=== PATIENT | male | born 1935 | race Hispanic/Latino ===

== ENCOUNTER 2017-11-08 23:08 | Inpatient (IN) | payer MEDICARE ==
[2017-11-08 23:08] VITALS: PULSE 80
--- NOTE | 2017-11-08 23:26 | EDPD ---
HPI Stroke - General Time Seen by Provider: 11/08/17 23:19 Historian: Family (Daughter) - History of Present Illness Narrative History of Present Illness (Free Text): 11/08/17 23:23 Brennan Ballard is an 82 year old male, whose past medical history includes CVA, COPD, alcohol abuse, tobacco abuse, and seizures, who presents to the emergency department brought in by EMS for left-sided weakness and altered mental status. As per daughter, patient was last seen normal at 13:00 today and when she came home at 19:00 noted patient was experiencing weakness in his arm and left leg with associated twitching. EMS was subsequently notified and patient was given Ativan en route to the hospital. Patient had 1 can of beer today. Limited HPI and ROS secondary to patient's altered mental status. PMD: Dr. Farrell Date:: 11/08/17 Time: 23:23 Onset:: Hours Timing: Currently Symptomatic Context: Home Exacerbated by: Nothing Relieved by: Nothing - Location Location: Mental Status Locate Left: Upper extremity rTPA Inclusion/Exclusion - Refusal of Treatment Patient Refused Treatment: No - Inclusion Criteria for Altepase Patient is 18 years or Older: Yes The Clinical Diagnosis of Ischemic Stroke That is Causing a Potentially Disabling Neurological Deficit: No Time of Onset is Well Established to be Less Than 270 Minute Before Treatment Would Begin: No Risk/Benefit Discussed With Patient/Family Member Present: Yes - Exclusion Criteria for Altepase Uncontrolled Hypertension at Time of Treatment (Systolic BP above 185 or Diastolic BP above 110 mmHg): No Active Internal Bleeding: No Known Bleeding Diathesis Including but Not Limited to: Platelets Below 100,000/ mm,PTT Above 40 sec After Heparin Use, Current Use of Oral Anitcoagulant With INR Greater Than 1.7 or PT Greater Than 15 secs: No Evidence of an Intracranial Hemorrhage: No Evidence of Major Acute Infarct With Signs Greater Than 1/3 MCA Territory: No Suspicion of Subarachnoid Hemorrhage on Pretreatment Evaluation Even if CT Head Negative For Hemorrhage: No - Warning to TPA With Conditions Following Conditions Weighed Against Anticipated Benefit: Yes Condition: Stroke Serevity Too Mild, Age Greater Than 75 years, Increase Risk of Bleed Due to Comorbid Condition Additional Condition (For 3-4.5 Hour Window): Age Greater Than 80, Prior Stroke and Diabetes, Any anticoagulant use prior to admission (Even if INR less than 1.7) Past Medical History - Provider Review Nursing Documentation Reviewed: Yes - Cardiac Hx Congestive Heart Failure: Yes - Pulmonary Hx Chronic Obstructive Pulmonary Disease (COPD): Yes - Neurological Hx Neurological Disorder: No - HEENT Hx HEENT Disorder: No - Renal Hx Renal Disorder: No - Endocrine/Metabolic Hx Endocrine Disorders: No - Hematological/Oncological Hx Blood Disorders: No - Integumentary Hx Dermatological Disorder: No - Musculoskeletal/Rheumatological Hx Musculoskeletal Disorders: No Hx Falls: Yes - Gastrointestinal Hx Gastrointestinal Disorders: No - Genitourinary/Gynecological Hx Genitourinary Disorders: No - Psychiatric Hx Substance Use: No Family/Social History - Family/Social History Family History: Other - Review Nursing documentation reviewed.: Yes Allergies/Home Meds Allergies/Adverse Reactions: Allergies No Known Allergies Allergy (Verified 11/08/17 23:30) Review of Systems - Review of Systems Systems not reviewed;Unavailable: Altered Mental Status Neurological: Focal Weakness (+left arm weakness, +left leg weakness) ED Stroke Physical Exam Vital Signs Reviewed: Yes Temperature: Afebrile Blood Pressure: Normal Pulse: Regular Respiratory Rate: Normal Appearance: Positive for: Well-Appearing Pain Distress: None Mental Status: Positive for: Confused - Systems Exam Head: Present: Atraumatic, Normocephalic Pupils: Present: PERRL Extroacular Muscles: Present: EOMI Conjunctiva: Present: Normal Ears: Present: NORMAL TM Mouth: Present: Moist Mucous Membranes Pharnyx: Present: Normal Nose (External): Present: Atraumatic Nose (Internal): Present: Normal Inspection Neck: Present: Normal Range of Motion Respiratory/Chest: Present: Clear to Auscultation, Good Air Exchange. No: Respiratory Distress, Accessory Muscle Use Cardiovascular: Present: Regular Rate and Rhythm, Normal S1, S2. No: Murmurs Abdomen: Present: Normal Bowel Sounds. No: Tenderness, Distention, Peritoneal Signs Upper Extremity: Present: Normal Inspection. No: Cyanosis, Edema Lower Extremity: Present: Normal Inspection. No: Edema Neurologic: Present: CN II-XII Intact, Speech Normal, Other (left hemiparesis) Skin: Present: Warm, Dry, Normal Color. No: Rashes Psychiatric: Present: Alert Medical Decision Making ED Course and Treatment: 11/08/17 23:23 Impression: 82 year old male brought in for left upper and lower extremity weakness and twitching at 19:00. Pt last seen normal at 13:00 today. Differential Diagnosis included but are not limited to: CVA vs. TIA Plan: -- CT Head -- CTA Head/Neck -- EKG -- CXR -- Labs, tropnin, lipid panel, blood type and screen -- IV fluids -- Reassess and disposition Prior Visits: Notes and results from previous visits were reviewed. Progress Notes: 11/08/17 23:23 Pt seen on arrival to emergency department. Code stroke called. Pt taken CT scan. 11/08/17 23:[address] Bolton, neurologist sales promotion manager, who is aware and agrees with plan. Requests CTA Head/Neck and pt receive Keppra 1000mg. 11/09/17 00:03 Reviewed EKG, NSR at [address]. Non-specific ST/T wave changes. 11/09/17 00:05 Reviewed radiology, CXR shows no acute processes. CT Head shows: Brain: Small hypodense chronic lacunar infarcts are again visualized within the bilateral thalami. A tiny hypodense lacunar infarct is also visualized within the right basal ganglia which is stable and therefore chronic. There are periventricular foci of hypodensity, likely representing small vessel ischemic disease in a patient this age. The acuity of the white matter disease is indeterminate. The white-lincoln differentiation is preserved demonstrating no acute territorial type infarct. No acute intracranial hemorrhage is seen. Midline shift: There is no midline shift. Ventricles: There is moderate prominence of the ventricles and sulci, compatible with atrophy. Bones/joints: The calvarium demonstrates no evidence for a depressed fracture. Soft tissues: Multiple scalp calcifications are identified. Vasculature: There is atherosclerotic calcification of the intracranial internal carotid arteries and distal vertebral arteries. Sinuses: There is mucosal thickening of the bilateral frontal sinuses and scattered ethmoid air cells. Mucosal thickening with mucous retention cysts or polyps are identified within the bilateral maxillary sinuses. Mild polypoid mucosal thickening is identified within the left sphenoid sinus. Mastoid air cells: No mastoid effusion. IMPRESSION: 1. No acute intracranial hemorrhage or acute territorial type infarct. 2. Small hypodense chronic lacunar infarcts are again visualized within the bilateral thalami. A tiny hypodense lacunar infarct is also visualized within the right basal ganglia which is stable and therefore chronic. 3. There are periventricular foci of hypodensity, likely representing small vessel ischemic disease in a patient this age. 4. Moderate atrophy. 5. Paranasal sinus disease is noted above. 6. If further evaluation is clinically indicated, an MRI of the brain is recommended. 11/09/17 00:[address] Farrell, who is aware and agrees with plan. Accepts pt in to his service. Pt will be admitted to Telemetry for CVA and seizure. Requests Dr. Bolton on consult. 11/09/17 01:00 CTA Head shows: VASCULATURE: Right internal carotid artery: Atherosclerotic changes are identified of the internal carotid arteries bilaterally. There is approximately 70% stenosis of the cavernous right internal carotid artery. Highgrade stenosis was visualized on the prior study as well. No aneurysm. Right anterior cerebral artery: There is mild hypoplasia of the A1 segment of the right anterior cerebral artery. No occlusion or significant stenosis. No aneurysm. Right middle cerebral artery: No occlusion or significant stenosis. No aneurysm. Right posterior cerebral artery: No occlusion or significant stenosis. No aneurysm. Right vertebral artery: There is stable irregularity and stenoses of the distal right vertebral artery. A dominant left vertebral artery is identified. The right vertebral artery ends predominantly as the posterior inferior cerebral artery. Left internal carotid artery: There is approximately 63% stenosis of the cavernous left internal carotid artery. No aneurysm. Left anterior cerebral artery: There is mild stenosis of the proximal A1 segment of the left anterior cerebral artery. No aneurysm. Left middle cerebral artery: There is a mild asymmetric decrease in caliber of the left M1 segment of the middle cerebral artery relative to the right side. This is stable compared to the prior study. Otherwise, there is no significant stenosis or occlusion of the left middle cerebral artery. No aneurysm. Left posterior cerebral artery: No occlusion or significant stenosis. No aneurysm. Left vertebral artery: There is atherosclerosis of the distal left vertebral artery, with approximately 50% stenosis. Basilar artery: No significant stenosis. No occlusion. No aneurysm. HEAD: Brain: Refer to the CT head report from the same day for discussion of additional intracranial findings. Soft tissues: A mineralized density is identified within the right facial soft tissues lateral to the mandible measuring 1.0 x 0.6 cm. This is stable. IMPRESSION: 1. Atherosclerotic changes are identified of the internal carotid arteries bilaterally. There is approximately 70% stenosis of the cavernous right internal carotid artery. High- grade stenosis was visualized on the prior study as well. 2. There is approximately 63% stenosis of the cavernous left internal carotid artery. 3. There is mild stenosis of the proximal A1 segment of the left anterior cerebral artery. 4. There is atherosclerosis of the distal left vertebral artery, with approximately 50% stenosis. 5. There is stable irregularity and stenoses of the distal right vertebral artery. A dominant left vertebral artery is identified. 6. Additional CT findings described above. CTA Neck shows: VASCULATURE: Right common carotid artery: Mild stenoses are visualized of the right common carotid artery. Right internal carotid artery: Atherosclerotic changes are identified of the right internal carotid artery and carotid bifurcation. There is approximately 70% stenosis of the proximal right internal carotid artery. This is stable. No occlusion. Right external carotid artery: No occlusion. Right vertebral artery: There is a diffuse decrease in caliber of the right vertebral artery, without occlusion. Left common carotid artery: Mild atherosclerotic changes are visualized of the left common carotid artery, without significant stenosis or occlusion. Left internal carotid artery: There is atherosclerosis of the proximal left internal carotid artery, with approximately 60% stenosis. This is similar to the prior study. No occlusion. Left external carotid artery: No occlusion. Left vertebral artery: There is mild stenosis of the proximal left vertebral artery, with atherosclerosis. A dominant left vertebral artery is identified. Other vasculature: Bilateral atherosclerotic changes are identified of the bilateral subclavian arteries, with mild stenosis of the left subclavian artery. There is atherosclerosis of the aortic arch. NECK: Bones/joints: Spondylosis is visualized at multiple cervical levels. There is mild anterior wedging/compression deformity of the C5 vertebral body, stable compared to the prior study. Soft tissues: No mass. Lung apices: Emphysematous changes are identified within the lungs, which are both centrilobular and paraseptal. Pleural space: Biapical parenchymal scarring and calcified pleural plaques are visualized. Calcified pleural plaques can be associated with asbestos exposure. CAROTID STENOSIS REFERENCE USING NASCET CRITERIA: % ICA stenosis = (1 - narrowest ICA diameter/diameter of distal cervical ICA) x 100. Mild - <50% stenosis. Moderate - 50-69% stenosis. Severe - 70-94% stenosis. Near occlusion - 95-99% stenosis. Occluded - 100% stenosis. IMPRESSION: 1. Atherosclerotic changes are identified of the right internal carotid artery and carotid bifurcation. There is approximately 70% stenosis of the proximal right internal carotid artery. This is stable. 2. Mild stenoses are visualized of the right common carotid artery. 3. There is atherosclerosis of the proximal left internal carotid artery, with approximately 60% stenosis. This is similar to the prior study. 4. There is mild stenosis of the proximal left vertebral artery, with atherosclerosis. A dominant left vertebral artery is identified. 5. Bilateral atherosclerotic changes are identified of the bilateral subclavian arteries, with mild stenosis of the left subclavian artery. 6. Additional findings described above. 11/09/17 01:16 Discussed CTA Head/Neck results with Dr. Bolton, who is aware and agrees with plan. Pt is not a candidate for tPA. Pt currently on Xarelto and received Keppra 1000mg, as per Dr. Bolton. - Critical Care Critical Care Minutes: 30 minutes - Lab Interpretations I have reviewed the lab results: Yes - RAD Interpretation Warp Doffer: ED Physician, Radiologist - EKG Interpretation Interpreted by ED Physician: Yes Type: 12 lead EKG - Scribe Statement The provider has reviewed the documentation as recorded by the Tinyibyesika Arvizu Provider Scribe Attestation: All medical record entries made by the Scribe were at my direction and personally dictated by me. I have reviewed the chart and agree that the record accurately reflects my personal performance of the history, physical exam, medical decision making, and the department course for this patient. I have also personally directed, reviewed, and agree with the discharge instructions and disposition. NIHSS Scale ([place]) Time Performed: 23:23 - How Severe is the [place]oke Baseline Level of Consciousness: 0=Alert LOC to Questions: 0=Both comments correct LOC to commands: 0=Obeys both correctly Best Gaze: 0=Normal Visual: 0=No visual loss Facial: 0=Normal Motor Arm - Left: 1=Drift noted before 10 sec Motor Arm - Right: 0=No drift Motor Leg - Left: 2=Falls before 5 sec Motor Leg - Right: 0=No drift Limb Ataxia: 0=Absent Sensory: 0=Normal Best Language: 0=No aphasia Dysarthia: 0=Normal articulation Extinction & Inattention (Neglect): 0=Normal, no object Score: 3 Risk Level: Minor Stroke Risk Disposition/Present on Arrival - Present on Arrival Any Indicators Present on Arrival: No History of DVT/PE: No History of Uncontrolled Diabetes: No Urinary Catheter: No History of Decub. Ulcer: No History Surgical Site Infection Following: None - Disposition Have Diagnosis and Disposition been Completed?: Yes Diagnosis: CVA (cerebral vascular accident) Disposition: HOSPITALIZED Disposition Time: 01:30 Patient Plan: Admission Condition: STABLE
--- NOTE | 2017-11-09 00:02 | CT ---
EXAM: CT Head Without Intravenous Contrast EXAM DATE/TIME: 11/08/2017 11:29 PM CLINICAL HISTORY: The patient age is 82 years old and is male; Signs and symptoms; Other: Seizure; Additional info: Code stroke Facility exam id and description: Ct headstroke head w/o (code stroke) TECHNIQUE: Axial computed tomography images of the head/brain without intravenous contrast. All CT scans at this facility use one or more dose reduction techniques, viz.: automated exposure control; ma/kV adjustment per patient size (including targeted exams where dose is matched to indication; i.e. head); or iterative reconstruction technique. Coronal and sagittal reformatted images were created and reviewed. COMPARISON: CT - HEAD W/O (CODE STROKE) 2017-03-31 13:46, MR - BRAIN W WO CONTRAST 04/04/2017 4:03:34 PM FINDINGS: Brain: Small hypodense chronic lacunar infarcts are again visualized within the bilateral thalami. A tiny hypodense lacunar infarct is also visualized within the right basal ganglia which is stable and therefore chronic. There are periventricular foci of hypodensity, likely representing small vessel ischemic disease in a patient this age. The acuity of the white matter disease is indeterminate. The white-lincoln differentiation is preserved demonstrating no acute territorial type infarct. No acute intracranial hemorrhage is seen. Midline shift: There is no midline shift. Ventricles: There is moderate prominence of the ventricles and sulci, compatible with atrophy. Bones/joints: The calvarium demonstrates no evidence for a depressed fracture. Soft tissues: Multiple scalp calcifications are identified. Vasculature: There is atherosclerotic calcification of the intracranial internal carotid arteries and distal vertebral arteries. Sinuses: There is mucosal thickening of the bilateral frontal sinuses and scattered ethmoid air cells. Mucosal thickening with mucous retention cysts or polyps are identified within the bilateral maxillary sinuses. Mild polypoid mucosal thickening is identified within the left sphenoid sinus. Mastoid air cells: No mastoid effusion. IMPRESSION: 1. No acute intracranial hemorrhage or acute territorial type infarct. 2. Small hypodense chronic lacunar infarcts are again visualized within the bilateral thalami. A tiny hypodense lacunar infarct is also visualized within the right basal ganglia which is stable and therefore chronic. 3. There are periventricular foci of hypodensity, likely representing small vessel ischemic disease in a patient this age. 4. Moderate atrophy. 5. Paranasal sinus disease is noted above. 6. If further evaluation is clinically indicated, an MRI of the brain is recommended.
[2017-11-09 00:36] LABS: BASO # 0.05 K/mm3 (0.0-2.0); BASO % 0.6 % (0.0-3.0); EOS # 0.3 (0.0-0.7); EOS % 3.3 % (1.5-5.0); GRAN # 3.73 (1.4-6.5); GRAN % 44.1 % (50.0-68.0); HEMOGLOBIN 12.6 g/dL (14.0-18.0); LYMPH # 3.6 (1.2-3.4); LYMPH % 42.4 % (22.0-35.0); MEAN CELL VOLUME 99.5 fl (80.0-105.0); MEAN CORPUSCULAR HEMOGLOBIN 33.8 pg (25.0-35.0); MEAN PLATELET VOLUME 9.5 fl (7.0-11.0); MONO # 0.8 (0.1-0.6); MONO % 9.6 % (1.0-6.0); RBC 3.73 10^6/uL (3.5-6.1); RED CELL DISTRIBUTION WIDTH 14.6 % (11.5-14.5); WHITE BLOOD COUNT 8.5 10^3/ul (4.5-11.0)
[2017-11-09 00:45] LABS: PROTHROMBIN TIME 12.6 SECONDS (9.4-12.5)
[2017-11-09 00:46] LABS: INR 1.1 (0.93-1.08); PARTIAL THROMBOPLASTIN TIME 31.7 Seconds (25.1-36.5)
[2017-11-09] MEDS ORDERED: levETIRAcetam 1,000 MG in Sodium Chloride 0.9% 100 ML IV ONE (00:46)
[2017-11-09 00:47] LABS: ALB/GLOB RATIO 1.2 (1.1-1.8); ALBUMIN 4.4 g/dL (3.0-4.8); ALT/SGPT 28 U/L (7-56); AST/SGOT 36 U/L (17-59); BLOOD UREA NITROGEN 14 mg/dL (7-21); CALCIUM 9.1 mg/dL (8.4-10.5); GFR AFRICAN-AMERICAN > 60; GFR NON-AFRICAN AMERICAN > 60; HDL CHOLESTEROL 53 mg/dL (29-60)
--- NOTE | 2017-11-09 00:50 | CT ---
EXAM: CT Angiography Head With Intravenous Contrast CLINICAL HISTORY: The patient age is 82 years old and is male; Signs and symptoms; Convulsions / seizures; Additional info: Seizure/left hemiparesis [facility] and [facility] stroke TECHNIQUE: Axial computed tomographic angiography images of the head with intravenous contrast using CT angiography protocol. All CT scans at this facility use one or more dose reduction techniques, viz.: automated exposure control; ma/kV adjustment per patient size (including targeted exams where dose is matched to indication; i.e. head); or iterative reconstruction technique. MIP reconstructed images were created and reviewed. Coronal and sagittal reformatted images were created and reviewed. CONTRAST: 146 mL of OMNI 350 administered intravenously. COMPARISON: CTA HEAD NECK BUNDLE 2017-03-31 13:50 FINDINGS: VASCULATURE: Right internal carotid artery: Atherosclerotic changes are identified of the internal carotid arteries bilaterally. There is approximately 70% stenosis of the cavernous right internal carotid artery. High-grade stenosis was visualized on the prior study as well. No aneurysm. Right anterior cerebral artery: There is mild hypoplasia of the A1 segment of the right anterior cerebral artery. No occlusion or significant stenosis. No aneurysm. Right middle cerebral artery: No occlusion or significant stenosis. No aneurysm. Right posterior cerebral artery: No occlusion or significant stenosis. No aneurysm. Right vertebral artery: There is stable irregularity and stenoses of the distal right vertebral artery. A dominant left vertebral artery is identified. The right vertebral artery ends predominantly as the posterior inferior cerebral artery Left internal carotid artery: There is approximately 63% stenosis of the cavernous left internal carotid artery. No aneurysm. Left anterior cerebral artery: There is mild stenosis of the proximal A1 segment of the left anterior cerebral artery. No aneurysm. Left middle cerebral artery: There is a mild asymmetric decrease in caliber of the left M1 segment of the middle cerebral artery relative to the right side. This is stable compared to the prior study. Otherwise, there is no significant stenosis or occlusion of the left middle cerebral artery. No aneurysm. Left posterior cerebral artery: No occlusion or significant stenosis. No aneurysm. Left vertebral artery: There is atherosclerosis of the distal left vertebral artery, with approximately 50% stenosis. Basilar artery: No significant stenosis. No occlusion. No aneurysm. HEAD: Brain: Refer to the CT head report from the same day for discussion of additional intracranial findings. Soft tissues: A mineralized density is identified within the right facial soft tissues lateral to the mandible measuring 1.0 x 0.6 cm. This is stable. IMPRESSION: 1. Atherosclerotic changes are identified of the internal carotid arteries bilaterally. There is approximately 70% stenosis of the cavernous right internal carotid artery. High-grade stenosis was visualized on the prior study as well. 2. There is approximately 63% stenosis of the cavernous left internal carotid artery. 3. There is mild stenosis of the proximal A1 segment of the left anterior cerebral artery. 4. There is atherosclerosis of the distal left vertebral artery, with approximately 50% stenosis. 5. There is stable irregularity and stenoses of the distal right vertebral artery. A dominant left vertebral artery is identified. 6. Additional CT findings described above. EXAM: CT Angiography Neck With Intravenous Contrast EXAM DATE/TIME: 11/08/2017 11:29 PM CLINICAL HISTORY: The patient age is 82 years old and is male; Signs and symptoms; Convulsions / seizures; Additional info: Seizure/left hemiparesis [facility] TECHNIQUE: Axial computed tomographic angiography images of the neck with intravenous contrast using CT angiography protocol. All CT scans at this facility use one or more dose reduction techniques, viz.: automated exposure control; ma/kV adjustment per patient size (including targeted exams where dose is matched to indication; i.e. head); or iterative reconstruction technique. MIP reconstructed images were created and reviewed. Coronal and sagittal reformatted images were created and reviewed. CONTRAST: 146 mL of OMNI 350 administered intravenously. COMPARISON: CTA HEAD NECK BUNDLE 2017-03-31 13:50 FINDINGS: VASCULATURE: Right common carotid artery: Mild stenoses are visualized of the right common carotid artery. Right internal carotid artery: Atherosclerotic changes are identified of the right internal carotid artery and carotid bifurcation. There is approximately 70% stenosis of the proximal right internal carotid artery. This is stable. No occlusion. Right external carotid artery: No occlusion. Right vertebral artery: There is a diffuse decrease in caliber of the right vertebral artery, without occlusion. Left common carotid artery: Mild atherosclerotic changes are visualized of the left common carotid artery, without significant stenosis or occlusion. Left internal carotid artery: There is atherosclerosis of the proximal left internal carotid artery, with approximately 60% stenosis. This is similar to the prior study. No occlusion. Left external carotid artery: No occlusion. Left vertebral artery: There is mild stenosis of the proximal left vertebral artery, with atherosclerosis. A dominant left vertebral artery is identified. Other vasculature: Bilateral atherosclerotic changes are identified of the bilateral subclavian arteries, with mild stenosis of the left subclavian artery. There is atherosclerosis of the aortic arch. NECK: Bones/joints: Spondylosis is visualized at multiple cervical levels. There is mild anterior wedging/compression deformity of the C5 vertebral body, stable compared to the prior study. Soft tissues: No mass. Lung apices: Emphysematous changes are identified within the lungs, which are both centrilobular and paraseptal. Pleural space: Biapical parenchymal scarring and calcified pleural plaques are visualized. Calcified pleural plaques can be associated with asbestos exposure. CAROTID STENOSIS REFERENCE USING NASCET CRITERIA: % ICA stenosis = (1 - narrowest ICA diameter/diameter of distal cervical ICA) x 100. Mild - <50% stenosis. Moderate - 50-69% stenosis. Severe - 70-94% stenosis. Near occlusion - 95-99% stenosis. Occluded - 100% stenosis. IMPRESSION: 1. Atherosclerotic changes are identified of the right internal carotid artery and carotid bifurcation. There is approximately 70% stenosis of the proximal right internal carotid artery. This is stable. 2. Mild stenoses are visualized of the right common carotid artery. 3. There is atherosclerosis of the proximal left internal carotid artery, with approximately 60% stenosis. This is similar to the prior study. 4. There is mild stenosis of the proximal left vertebral artery, with atherosclerosis. A dominant left vertebral artery is identified. 5. Bilateral atherosclerotic changes are identified of the bilateral subclavian arteries, with mild stenosis of the left subclavian artery. 6. Additional findings described above.
[2017-11-09 00:58] LABS: LDL CHOLESTEROL 63 mg/dL (0-129)
[2017-11-09 01:01] LABS: TROPONIN I < 0.01 ng/mL
[2017-11-09] MEDS: Sodium Chloride 0.9% 1,000 ML IV SCH ×2 (01:14→18:03)
[2017-11-09 06:07] VITALS: BMI 18.2
--- NOTE | 2017-11-09 09:59 | RAD ---
HISTORY: Code Stroke COMPARISON: 04/06/2017 FINDINGS: LUNGS: No active pulmonary disease. PLEURA: No significant pleural effusion identified, no pneumothorax apparent. CARDIOVASCULAR: The heart is normal in size. Mild vascular congestion OSSEOUS STRUCTURES: No significant abnormalities. VISUALIZED UPPER ABDOMEN: Normal. OTHER FINDINGS: None. IMPRESSION: No active disease.
--- NOTE | 2017-11-09 11:26 | CARD ---
APPROVED REPORT EKG Measurement Heart [id number] <Conclusion> Normal sinus rhythm with 1st degree AVB Right bundle branch block STTW changes c/w ischemia, new Low voltage limb leads.
[2017-11-09] MEDS: Potassium Chloride 20 mEq ER Tab PO SCH ×2 (12:52→17:56)
--- NOTE | 2017-11-09 17:19 | HP ---
HISTORY OF PRESENT ILLNESS: The patient is 82 years old, patient of Dr. Farrell, covering for him. History taken from the patient's daughter who was by the bedside. The patient is not very cooperative and poor historian. According to daughter, she went out to have her hair done. When she came back, her father was sitting on the chair. Usually, he ambulates with a walker. He asked her to drink some beer from the fridge that she usually does not do and she noticed that his left hand is curled in and is weak and he dropped a pack of cigarette from his hand. She asked him to walk to the bedroom. He was able to only stand up, but could not walk, so she called ambulance and he was brought to emergency room around 11:00 at night. Apparently, accordingly to daughter, he had stroke last year. She does state that he regularly drinks 4-5 beers everyday and he still smokes heavy. There is no associated symptom of nausea, vomiting, headache, hemoptysis, hematemesis. No history of fever. No chills. No history of fall. PAST MEDICAL HISTORY: Significant for, 1. Hypertension. 2. Hyperlipidemia. 3. Chronic AFib, on anticoagulant. 4. History of lung nodule. 5. COPD. ALLERGIES: HE IS NOT ALLERGIC TO ANY MEDICATIONS. MEDICATIONS AT HOME: He is on magnesium 400 twice a day, Xopenex 0.6 three times a day, Lasix 40 mg daily, folic acid 1 mg daily, doxycycline 100 mg every 12, Keppra 500 twice a day, Xarelto 20 mg daily, potassium 20 mEq daily, nicotine patch and multivitamins. SOCIAL HISTORY: He lives with his daughter, heavy smoker and he drinks 4-5 beers everyday. PHYSICAL EXAMINATION: GENERAL: He is lethargic, sleepy because he was given Ativan earlier. VITAL SIGNS: He is afebrile, pulse 75, respiration 18, blood pressure 134/77. LUNGS: Bilateral soft crackle and diffusely decreased breath sounds. HEART: S1 and S2 audible. ABDOMEN: Soft, nontender. No rebound. No guarding. NEUROLOGICAL: The patient is sleepy, but arousable. Unable to assess his motor system because he is non-cooperative and falling asleep. LABORATORY EXAM: WBC is 8.5, hemoglobin 12.6, hematocrit 37.1, platelet 228. PT 12.6, INR 1.1. Chemistry: Sodium 141, potassium 4.2, chloride 103, CO2 27, BUN 14, creatinine 0.6, blood sugar 90, alcohol level is less than 10. Had CT scan of the brain done that shows no acute intracranial hemorrhage or territorial infarct. He has small hypodense chronic lacunar infarct within the bilateral thalami. Tiny hypodensity lacunar infarct in the right basal ganglia. There is also periventricular foci of hypodensity representing small vessel disease with moderate atrophy. His chest x-ray is negative. EKG shows normal sinus rhythm, right bundle-branch block. CT angio of the neck shows atherosclerotic changes of internal carotid artery bilaterally and approximately 70% stenosis of cavernous and right internal carotid artery, high-grade stenosis was also visualized on prior study. A 63% stenosis of cavernous, left internal carotid artery. Mild stenosis of paroxysmal A1 segment of the left anterior cerebral artery. ASSESSMENT: 1. Acute cerebrovascular accident with left hemiparesis. 2. Multiple cerebrovascular accidents in the past. 3. Hypertension. 4. Hyperlipidemia. 5. Paroxysmal atrial fibrillation. 6. Pulmonary nodule. 7. Active smoker. 8. Alcohol abuse. PLAN: We will start the patient on IV fluids. Start him on nicotine patch 21 mg daily. We will continue him on Keppra. Swallowing eval will be requested. We will order for carotid Doppler and MRI of the brain. Awaiting neuro eval. Rocio Zimmer MD
--- NOTE | 2017-11-09 22:49 | CP.PCM.CON ---
History of Present Illness - History of Present Illness History of Present Illness: 82 yr old male who was admitted with left sided weakness yesterday, with pmh of stroke, COPD, chronic alcohol abuse, and epilepsy who presented with twitching and weakness of his left side. He was found by his daughter and was found about 6 hours after she left him normal. Ems gave patient ativan en route , and patients symptoms resolved by my exam. ROS: unable to elicit as patient refuses. on exam: Neuro exam refused at this time. He appears to have no facial asymmetry, is speaking fluently, and follows commands. +2 dtr ul and ll bl. Toes downgoing bl. Past Patient History - Infectious Disease Hx of Infectious Diseases: None - Past Social History Smoking Status: Current Some Days Smoker - CARDIAC Hx Congestive Heart Failure: Yes - PULMONARY Hx Chronic Obstructive Pulmonary Disease (COPD): Yes - NEUROLOGICAL Hx Neurological Disorder: No - HEENT Hx HEENT Problems: No - RENAL Hx Chronic Kidney Disease: No - ENDOCRINE/METABOLIC Hx Endocrine Disorders: No - HEMATOLOGICAL/ONCOLOGICAL Hx Blood Disorders: No - INTEGUMENTARY Hx Dermatological Problems: No - MUSCULOSKELETAL/RHEUMATOLOGICAL Hx Falls: Yes - GASTROINTESTINAL Hx Gastrointestinal Disorders: No - GENITOURINARY/GYNECOLOGICAL Hx Genitourinary Disorders: No - PSYCHIATRIC Hx Psychophysiologic Disorder: Yes (SMOKES 3 PPD,DRINKS 6-8 BEERS/D FOR 20 YRS.) - SURGICAL HISTORY Hx Surgeries: No - ANESTHESIA Hx Anesthesia: No Meds Allergies/Adverse Reactions: Allergies Allergy/AdvReac Type Severity Reaction Status Date / Time No Known Allergies Allergy Verified 11/08/17 23:30 - Medications Medications: Current Medications Aspirin (Ecotrin) 81 mg PO DAILY [facility] Atorvastatin Calcium (Lipitor) 20 mg PO DAILY [facility] Folic Acid (Folic Acid) 1 mg PO DAILY [facility] Sodium Chloride (Sodium Chloride 0.9%) 1,000 mls @ 100 mls/hr IV .Q10H [facility] Last Admin: 11/09/17 01:14 Dose: 100 mls/hr Levetiracetam (Keppra) 500 mg PO BID [facility] Nicotine (Nicoderm Cq) 1 patch TD DAILY [facility] Potassium Chloride (K-Dur 20 Meq Er Tab) 20 meq PO BID [facility] Rivaroxaban (Xarelto) 20 mg PO DAILY [facility] PRN Reason: Protocol Results - Vital Signs Recent Vital Signs: Last Vital Signs Temp 97.8 F 11/09/17 06:00 Pulse 65 11/09/17 10:00 Resp 18 11/09/17 06:00 BP 134/77 11/09/17 06:00 Pulse Ox 98 11/09/17 03:30 - Labs Result Diagrams: 11/08/17 23:53 11/08/17 23:53 Labs: Laboratory Results - last 24 hr 11/09/17 01:37 Blood Type Confirm O NEGATIVE Assessment & Plan - Assessment and Plan (Free Text) Assessment: 82 yr old male with possible stroke, but he is refusing exam and MRI Brain. There fore we are unable to clearly determine if he has had a new stroke. IT is also not clear if he has had a seizure. Plan: 1. MRI Brain 2. aspirin 325 mg po daily 3. neuroimaging so far normal. 4. IF patient continues to refuse treatment would discharge home and manage outpatient. Thank you Dr. Bolton
[2017-11-10] MEDS: Potassium Chloride 20 mEq ER Tab PO SCH (10:00)
[2017-11-10] MEDS: Potassium Chloride 20 mEq/15 ml LIQ UD PO SCH ×2 (12:24→17:56)
[2017-11-10] MEDS: levETIRAcetam 500 mg/5ml UD cups PO SCH ×2 (12:25→21:58)
[2017-11-10] MEDS: Sodium Chloride 0.9% 1,000 ML IV SCH (14:30)
--- NOTE | 2017-11-10 20:46 | PN ---
DATE: 11/10/2017 SUBJECTIVE: Patient is 82 years old, seen and examined, sleepy, but arousable, not very cooperative, agitated at times, had swallowing evaluation done in past, being fed today. According to the nurse, does not have good appetite. Falls asleep easily, but did not have any nausea or vomiting. PHYSICAL EXAMINATION: VITAL SIGNS: He is afebrile, pulse 90, respirations 22, and blood pressure 158/96. LUNGS: Bilateral fair airflow. No rhonchi or crackles. HEART: S1, S2 audible. ABDOMEN: Soft, nontender. No rebound. No guarding. NEUROLOGIC: Patient is sleepy, but arousable. EXTREMITIES: Bilateral legs, no edema. LABORATORY DATA: There is no new lab available today. ASSESSMENT: 1. Status post altered mental status. 2. Left hemiparesis. 3. Hypertension. 4. Hyperlipidemia. 5. Chronic atrial fibrillation. 6. History of lung nodule. 7. Chronic obstructive pulmonary disease. 8. Active smoker. 9. Alcohol abuse. PLAN: The patient was recommended to have MRI done, but he refused. He also refused carotid Doppler. We will start him on Ativan, start to feed him. We will reevaluate in a.m. if he agree to have MRI done . Rocio Zimmer MD
[2017-11-11] MEDS: Sodium Chloride 0.9% 1,000 ML IV SCH ×2 (01:30→10:16)
--- NOTE | 2017-11-11 07:09 | CP.PCM.PN ---
Subjective - Date & Time of Evaluation Date of Evaluation: 11/11/17 Time of Evaluation: 07:08 - Subjective Subjective: Mr. Ballard was seen and examined at the bedside. He is awake, confused, unable to follow simple commands, moves all extremities spontaneously. He is able to response to his name. He has the SCD on bilateral lower extremities.There was no untoward events overnight. Objective - Vital Signs/Intake and Output Vital Signs (last 24 hours): Temp Pulse Resp BP Pulse Ox 97.2 F L 74 19 159/86 H 96 11/11/17 06:00 11/11/17 06:00 11/11/17 06:00 11/11/17 06:00 11/11/17 06:00 Intake and Output: 11/11/17 11/11/17 06:59 18:59 Intake Total 20 Balance 20 - Medications Medications: Current Medications Aspirin (Ecotrin) 81 mg PO DAILY [facility] Last Admin: 11/10/17 12:24 Dose: 81 mg Atorvastatin Calcium (Lipitor) 20 mg PO DIN [facility] Last Admin: 11/10/17 17:56 Dose: 20 mg Folic Acid (Folic Acid) 1 mg PO DAILY [facility] Last Admin: 11/10/17 12:24 Dose: 1 mg Sodium Chloride (Sodium Chloride 0.9%) 1,000 mls @ 100 mls/hr IV .Q10H [facility] Last Admin: 11/11/17 01:30 Dose: 100 mls/hr Levetiracetam (Keppra) 500 mg PO Q12 [facility] Last Admin: 11/10/17 21:58 Dose: 500 mg Lorazepam (Ativan) 2 mg IVP ONCE ONE PRN Reason: Protocol Stop: 11/11/17 08:01 Lorazepam (Ativan) 0.5 mg IVP Q6H PRN; Protocol PRN Reason: Anxiety Last Admin: 11/10/17 21:59 Dose: 0.5 mg Nicotine (Nicoderm Cq) 1 patch TD DAILY [facility] Last Admin: 11/10/17 12:25 Dose: 1 patch Potassium Chloride (Potassium Chloride Oral Soln) 20 meq PO BRKDIN [facility] Last Admin: 11/10/17 17:56 Dose: 20 meq Rivaroxaban (Xarelto) 20 mg PO DAILY [facility] PRN Reason: Protocol Last Admin: 11/10/17 12:24 Dose: 20 mg - Labs Labs: PT 12.6 SECONDS (9.4-12.5) H 11/08/17 23:53 INR 1.10 (0.93-1.08) H 11/08/17 23:53 APTT 31.7 Seconds (25.1-36.5) 11/08/17 23:53 - Constitutional Appears: No Acute Distress - Head Exam Head Exam: NORMAL INSPECTION - Neurological Exam Neuro motor strength exam: Left Upper Extremity: 3, Right Upper Extremity: 3, Left Lower Extremity: 3, Right Lower Extremity: 3 Additional comments: confused, unable to follow any commands, moves all extremities spontaneously. Assessment and Plan (1) Altered mental status Assessment & Plan: Case discussed with Dr. Bolton, continue all current medical regimen. Pending MRI of the brain without contrast. Recommend blood pressure control, keep head of bed elevated. Status: Acute
[2017-11-11] MEDS: Potassium Chloride 20 mEq/15 ml LIQ UD PO SCH ×2 (07:51→17:55)
[2017-11-11 08:01] LABS: BASO # 0.04 K/mm3 (0.0-2.0); BASO % 0.3 % (0.0-3.0); EOS # 0.3 (0.0-0.7); EOS % 2.7 % (1.5-5.0); GRAN # 6.96 (1.4-6.5); GRAN % 59.1 % (50.0-68.0); HEMOGLOBIN 13.5 g/dL (14.0-18.0); LYMPH # 3.1 (1.2-3.4); LYMPH % 26.1 % (22.0-35.0); MEAN CELL VOLUME 96.8 fl (80.0-105.0); MEAN CORPUSCULAR HEMOGLOBIN 33.5 pg (25.0-35.0); MEAN CORPUSCULAR HGB CONC 34.6 g/dl (31.0-37.0); MEAN PLATELET VOLUME 9.6 fl (7.0-11.0); MONO # 1.4 (0.1-0.6); MONO % 11.8 % (1.0-6.0); RBC 4.03 10^6/uL (3.5-6.1); RED CELL DISTRIBUTION WIDTH 13.4 % (11.5-14.5); WHITE BLOOD COUNT 11.8 10^3/ul (4.5-11.0)
[2017-11-11 08:22] LABS: ALB/GLOB RATIO 1.2 (1.1-1.8); ALBUMIN 4.1 g/dL (3.0-4.8); ALT/SGPT 26 U/L (7-56); AST/SGOT 32 U/L (17-59); BLOOD UREA NITROGEN 4 mg/dL (7-21); GFR AFRICAN-AMERICAN > 60; GFR NON-AFRICAN AMERICAN > 60
[2017-11-11] MEDS: levETIRAcetam 500 mg/5ml UD cups PO SCH ×2 (09:02→22:02)
[2017-11-11] MEDS ORDERED: Gadodiamide 287 MG/ML VIAL (15ML) IV ONE (11:50)
--- NOTE | 2017-11-11 13:02 | MRI ---
PROCEDURE: MRI BRAIN WITH AND WITHOUT CONTRAST HISTORY: r/o new stroke; H/O CVA COMPARISON: 04/04/2017 TECHNIQUE: Multiplanar, multisequence MR images of the brain were obtained with and without intravenous contrast enhancement. FINDINGS: HEMORRHAGE: None DWI: No evidence of an acute or early subacute infarction. BRAIN PARENCHYMA: No mass,mass effect or edema. Chronic microvascular changes are seen in the periventricular white matter. ENHANCEMENT: No abnormal intracranial enhancement. VENTRICLES: Unremarkable. No hydrocephalus. CRANIUM: Unremarkable. ORBITS: Grossly unremarkable. PARANASAL SINUSES/MASTOIDS: Clear VASCULAR SYSTEM: Skull base flow voids intact. OTHER FINDINGS: None . IMPRESSION: Chronic microvascular changes. No acute intracranial findings.
--- NOTE | 2017-11-11 17:22 | PN ---
DATE: 11/11/2017 SUBJECTIVE: Patient is 82 years old. He was just given Ativan because he is going for MRI. According to nurse, he was was able to eat, relatively less agitated. OBJECTIVE: VITAL SIGNS: He is afebrile, pulse 74, respirations 19, blood pressure 159/86. LUNGS: Bilateral fair airflow. No rhonchi or crackle. HEART: S1 and S2 audible. ABDOMEN: Soft, nontender. No rebound, no guarding. ENT: He has nonicteric sclerae, pink conjunctivae. He has hyphema of his nose. NEUROLOGICAL: He is sedated and was given Ativan in prep for MRI. EXTREMITIES: Bilateral legs, no edema. LABORATORY EXAM: WBC is 11.8, hemoglobin 13.5, hematocrit 39, and platelets of 227. Chemistry: Sodium 142, potassium 3.5, chloride 103, CO2 of 26. BUN 5, creatinine 0.4. Blood sugar of 111. Patient had MRI of the brain done that shows chronic microvascular changes, no acute intracranial findings. ASSESSMENT: 1. Left-sided weakness noticed by the family member; however, his clinical exam is unremarkable and so his MRI is also unremarkable. 2. Alcohol dependence and he was having symptoms of alcohol withdrawal. 3. Chronic obstructive pulmonary disease. 4. Hypertension. 5. Active smoker. 6. History of lung nodule. 7. Chronic atrial fibrillation. PLAN: Patient is hemodynamically stable. We will discontinue telemetry. Continue him on Keppra. Continue on Lipitor, nicotine. His potassium was supplemented. I will discontinue his fluid since he is eating very well. Start him on physical therapy. He might be a candidate for TCU. Rocio Zimmer MD
[2017-11-12 06:57] LABS: ALB/GLOB RATIO 1.1 (1.1-1.8); ALT/SGPT 26 U/L (7-56); AST/SGOT 37 U/L (17-59); BASO # 0.06 K/mm3 (0.0-2.0); BASO % 0.6 % (0.0-3.0); BLOOD UREA NITROGEN 5 mg/dL (7-21); EOS # 0.6 (0.0-0.7); GFR AFRICAN-AMERICAN > 60; GFR NON-AFRICAN AMERICAN > 60; GRAN # 4.69 (1.4-6.5); GRAN % 46.7 % (50.0-68.0); HEMOGLOBIN 13.6 g/dL (14.0-18.0); LYMPH # 3.5 (1.2-3.4); LYMPH % 34.7 % (22.0-35.0); MEAN CELL VOLUME 97.8 fl (80.0-105.0); MEAN CORPUSCULAR HEMOGLOBIN 33.3 pg (25.0-35.0); MEAN PLATELET VOLUME 9.5 fl (7.0-11.0); MONO # 1.2 (0.1-0.6); RBC 4.09 10^6/uL (3.5-6.1); RED CELL DISTRIBUTION WIDTH 13.9 % (11.5-14.5)
[2017-11-12] MEDS: levETIRAcetam 500 mg/5ml UD cups PO SCH (09:11)
[2017-11-12] MEDS: Potassium Chloride 20 mEq/15 ml LIQ UD PO SCH ×2 (09:12→17:57)
--- NOTE | 2017-11-12 11:39 | PN ---
DATE: 11/12/2017 SUBJECTIVE: An 82-year-old white male with a history of CVA and seizure in the past, alcohol abuse, tobacco abuse, COPD, chronic alcoholism admitted with change in mental status. Blood pressure 170/99 and temperature 98.1, pulse is 102 plus he has paroxysmal atrial fibrillation. The patient has been taking Xarelto as an outpatient and doing well when this occurrence occurred. The patient is more stable today. He has increased strength in his upper and lower extremities without any localizing defects. He is awake and alert. DATA: He did have a brain MRI, which did not show any new acute lesions. He also had a neck CTA, which was normal. PLAN: The patient will start physical therapy and occupational therapy and instructed to continue to avoid tobacco and alcohol and be followed as an outpatient. Clifford Farrell MD
--- NOTE | 2017-11-12 12:45 | CP.PCM.PN ---
Subjective - Date & Time of Evaluation Date of Evaluation: 11/12/17 Time of Evaluation: 12:45 - Subjective Subjective: Mr. Ballard was seen and examined at the bedside. He is awake, able to state place, his birthday, but not time which is an improvement from previous examination. He is able to follow simple commands, moves all extremities spontaneously. He is able to tolerate small amount of thin liquids. .There was no untoward events overnight. Objective - Vital Signs/Intake and Output Vital Signs (last 24 hours): Temp Pulse Resp BP Pulse Ox 97.4 F L 65 20 120/77 94 L 11/12/17 10:00 11/12/17 10:00 11/12/17 10:00 11/12/17 10:00 11/12/17 10:00 Intake and Output: 11/12/17 11/12/17 06:59 18:59 Intake Total 0 Output Total 0 Balance 0 - Medications Medications: Current Medications Aspirin (Ecotrin) 81 mg PO DAILY [facility] Last Admin: 11/12/17 09:11 Dose: 81 mg Atorvastatin Calcium (Lipitor) 20 mg PO DIN [facility] Last Admin: 11/11/17 17:55 Dose: 20 mg Folic Acid (Folic Acid) 1 mg PO DAILY [facility] Last Admin: 11/12/17 09:11 Dose: 1 mg Levetiracetam (Keppra) 500 mg PO Q12 [facility] Last Admin: 11/12/17 09:11 Dose: 500 mg Lorazepam (Ativan) 0.5 mg IVP Q6H PRN; Protocol PRN Reason: Anxiety Last Admin: 11/10/17 21:59 Dose: 0.5 mg Nicotine (Nicoderm Cq) 1 patch TD DAILY [facility] Last Admin: 11/12/17 09:11 Dose: 1 patch Potassium Chloride (Potassium Chloride Oral Soln) 20 meq PO BRKDIN [facility] Last Admin: 11/12/17 09:12 Dose: 20 meq Rivaroxaban (Xarelto) 20 mg PO DAILY [facility] PRN Reason: Protocol Last Admin: 11/12/17 09:11 Dose: 20 mg - Labs Labs: 11/12/17 05:30 11/12/17 05:30 PT 12.6 SECONDS (9.4-12.5) H 11/08/17 23:53 INR 1.10 (0.93-1.08) H 11/08/17 23:53 APTT 31.7 Seconds (25.1-36.5) 11/08/17 23:53 - Constitutional Appears: No Acute Distress - Head Exam Head Exam: NORMAL INSPECTION - Eye Exam Pupil Exam: PERRL - Neurological Exam Neurological Exam: Alert, Awake Neuro motor strength exam: Left Upper Extremity: 4, Right Upper Extremity: 4, Left Lower Extremity: 3, Right Lower Extremity: 3 Additional comments: awake, alert but unable to verbalize time, follows commands. Assessment and Plan (1) Altered mental status Assessment & Plan: Case discussed with Dr. Bolton, continue all current medical, physical, occupational, and speech therapies. Recommend EEG and a neurointerventional consult to eval;uate the right ICA. Pending carotid doppler.Recommend hydration , normothermia, Status: Acute
--- NOTE | 2017-11-12 15:04 | RAD ---
PROCEDURE: Left Hand Radiographs. HISTORY: bruising of the left hand COMPARISON: None. FINDINGS: BONES: Normal. No fracture. JOINTS: Normal. No osteoarthritic changes. SOFT TISSUES: Normal. OTHER FINDINGS: None. IMPRESSION: Normal left hand radiographs.
--- NOTE | 2017-11-12 15:05 | RAD ---
PROCEDURE: Radiographs of the Left Forearm HISTORY: r/o fracture COMPARISON: None available. TECHNIQUE: Frontal and lateral views obtained. FINDINGS: BONES: No fracture or destructive lesion. JOINT SPACES: Unremarkable. OTHER FINDINGS: None. IMPRESSION: Unremarkable radiographs of the left forearm.
--- NOTE | 2017-11-12 15:06 | RAD ---
PROCEDURE: Radiographs of the Left Shoulder HISTORY: bruising r/o fracture COMPARISON: No prior. FINDINGS: BONES: Normal. No fracture. JOINTS: Normal. Glenohumeral and acromioclavicular joints preserved. No osteoarthritis. SOFT TISSUES: Normal. OTHER FINDINGS: None. IMPRESSION: Normal radiographs of the left shoulder.
[2017-11-12] MEDS ORDERED: Levalbuterol 0.63 MG/3 ML Inhal Soln UD IH PRN (16:56)
--- NOTE | 2017-11-12 21:28 | US ---
PROCEDURE: Bilateral carotid artery duplex ultrasound HISTORY: Carotid stenosis PHYSICIAN(S): Armani Rosario MD. TECHNIQUE: Duplex sonography and color-flow Doppler were used to evaluate the carotid bifurcations and limited segments of the vertebral arteries bilaterally. FINDINGS: There is moderate to extensive heterogeneous echogenic plaque noted at the carotid bifurcations bilaterally. The peak systolic velocity in the proximal right internal carotid artery is 141 cm/sec. This corresponds to a 40-59 percent proximal right ICA stenosis. Normal systolic velocities are noted in the proximal right external carotid artery. There is antegrade flow in the right vertebral artery. The peak systolic velocity in the proximal left internal carotid artery is 85 cm/sec. This corresponds to a 20 to 39% proximal left ICA stenosis. Normal systolic velocities are noted in the proximal left external carotid artery. There is antegrade flow in the left vertebral artery. IMPRESSION: 1. 40-59 percent proximal right ICA stenosis. 2. 20-39 percent proximal left ICA stenosis. 3. Antegrade flow in both vertebral arteries.
[2017-11-13] MEDS: Potassium Chloride 20 mEq/15 ml LIQ UD PO SCH ×2 (09:46→17:38)
--- NOTE | 2017-11-13 12:41 | CP.PCM.CON ---
History of Present Illness - History of Present Illness History of Present Illness: Mr. Ballard is an 82 year old male, with a past medical history of stroke, COPD, alcohol abuse, tobacco abuse, and seizures, who was brought in to the emergency department by EMS for left-sided weakness and altered mental status. As per daughter, patient was last seen normal at 1pm on the day of admission and when she came home at 7 pm noted patient was weak in his arm and left leg with associated twitching. EMS was subsequently notified and patient was given Ativan en route to the hospital. . Pt is irritable and does not want to participate in review of systems On exam: MSE: Confused, follows simple commands inconsistently but is irritable CN: EOM full, VFF, No facial droop, tongue midline Motor: moves both sides strongly Sensory: Reports intact b/l Coord: No dysmetria Gait: Deferred Past Patient History - Infectious Disease Hx of Infectious Diseases: None - Past Social History Smoking Status: Current Some Days Smoker - CARDIAC Hx Cardiac Disorders: Yes Hx Hypertension: Yes - PULMONARY Hx Chronic Obstructive Pulmonary Disease (COPD): Yes - NEUROLOGICAL HX Cerebrovascular Accident: Yes - HEENT Hx HEENT Problems: No - RENAL Hx Chronic Kidney Disease: No - ENDOCRINE/METABOLIC Hx Endocrine Disorders: No - HEMATOLOGICAL/ONCOLOGICAL Hx Blood Disorders: No - INTEGUMENTARY Hx Dermatological Problems: No - MUSCULOSKELETAL/RHEUMATOLOGICAL Hx Falls: Yes - GASTROINTESTINAL Hx Gastrointestinal Disorders: No - GENITOURINARY/GYNECOLOGICAL Hx Genitourinary Disorders: No - PSYCHIATRIC Hx Psychophysiologic Disorder: Yes (SMOKES 3 PPD,DRINKS 6-8 BEERS/D FOR 20 YRS.) - SURGICAL HISTORY Hx Surgeries: No - ANESTHESIA Hx Anesthesia: No Meds Allergies/Adverse Reactions: Allergies Allergy/AdvReac Type Severity Reaction Status Date / Time No Known Allergies Allergy Verified 11/08/17 23:30 - Medications Medications: Current Medications Aspirin (Ecotrin) 81 mg PO DAILY [facility] Last Admin: 11/13/17 09:46 Dose: 81 mg Atorvastatin Calcium (Lipitor) 20 mg PO DIN [facility] Last Admin: 11/12/17 17:57 Dose: 20 mg Folic Acid (Folic Acid) 1 mg PO DAILY [facility] Last Admin: 11/13/17 09:46 Dose: 1 mg Levalbuterol HCl (Xopenex) 0.63 mg IH [id number] PRN PRN Reason: Shortness of Breath Levetiracetam (Keppra) 750 mg PO BID [facility] Last Admin: 11/13/17 09:46 Dose: 750 mg Lorazepam (Ativan) 0.5 mg IVP Q6H PRN; Protocol PRN Reason: Anxiety Last Admin: 11/10/17 21:59 Dose: 0.5 mg Nicotine (Nicoderm Cq) 1 patch TD DAILY [facility] Last Admin: 11/12/17 09:11 Dose: 1 patch Potassium Chloride (Potassium Chloride Oral Soln) 20 meq PO BRKDIN [facility] Last Admin: 11/13/17 09:46 Dose: 20 meq Rivaroxaban (Xarelto) 20 mg PO DAILY [facility] PRN Reason: Protocol Last Admin: 11/13/17 09:46 Dose: 20 mg Results - Vital Signs Recent Vital Signs: Last Vital Signs Temp 96 F L 11/13/17 08:22 Pulse 66 11/13/17 08:22 Resp 20 11/13/17 08:22 BP 139/72 11/13/17 08:22 Pulse Ox 94 L 11/13/17 08:22 - Labs Result Diagrams: 11/12/17 05:30 11/12/17 05:30 Assessment & Plan - Assessment and Plan (Free Text) Assessment: The patients symptoms at onset is more consistent with a seizure. Plan: 1) The right internal carotid stenosis (on my evaluation) is moderate by CTA and doppler. No need for any intervention at this time 2) Will review anticoagulation and antiplatelet plan with stroke team 3) No stroke on MRI 4) Please do not hesitate to contact me for any further questions or clarifications 5) Approximate 45 minutes of critical care time spent in evaluating and managing and documenting and coordinating care for this patient with moderate carotid stenosis with seizures
--- NOTE | 2017-11-13 12:50 | PN ---
DATE: 11/13/2017 An 82-year-old white male admitted to the hospital with change in mental status, possible CVA. The patient had a normal MRI, which showed no new findings. He has a 70% right internal carotid artery ____, also there is vertebral artery disease and intracranial disease, most likely the patient was on anticoagulation previously. The patient is high risk for complications from any type of procedure. Also, has less than 90% stenosis of the right internal carotid artery. He did not have a new CVA. At this point, we had discussed with the family and we are not anticipating any intervention at this point except to put the patient back on Xarelto. The patient continues to smoke and drink as he has in the past. This has not changed in the past and will not change in the future. Most likely, the patient is resistant to any change in his behavior. Therefore, I do not believe that any intervention is warranted or necessary at this point. The patient did have x-rays of his hand, shoulder and forearm, which were negative. PLAN: The plan is to continue physical therapy and occupational therapy. Return the patient to his anticoagulation and continue rehab as stated. Clifford Farrell MD
[2017-11-14 08:22] VITALS: BP 133/83; PULSE 83; RESP 20; TEMP 97.6; O2SAT 97
[2017-11-14] MEDS: Potassium Chloride 20 mEq/15 ml LIQ UD PO SCH (10:34)
--- NOTE | 2017-11-14 15:39 | PN ---
DATE: 11/14/2017 SUBJECTIVE: An 82-year-old white male, admitted to the hospital with recurrence of CVA. The patient was evaluated by interventional neurologist. The patient does have carotid blockage, but less than 80%. He has no recurrent disease and the MRI does not show a new CVA. The patient will be discharged to subacute rehab. No intervention is planned at this point. The patient will be continued on his Xarelto for his paroxysmal atrial fibrillation and CVA in the past. The patient is to continue on smoking and alcohol cessation if possible and to continue on blood pressure medications. Physical examination is unchanged. Vital signs are stable. The patient is awake, alert. Speech is more fluent. Plan is to discharge to subacute rehab. Clifford Farrell MD
== END 2017-11-14 13:31 | DRG 101 ==
LOC: ED 23:08 → ERH 11-09 01:31 → 2RSO 11-09 04:27 → 3RSO 11-11 18:18
PROVIDERS: ADMIT Internal Medicine; ATTEND Internal Medicine
DX: G40.909 Epilepsy, unspecified, not intractable, without status epilepticus (principal); R41.82 Altered mental status, unspecified; I65.23 Occlusion and stenosis of bilateral carotid arteries; I48.0 Paroxysmal atrial fibrillation; I48.2 Chronic atrial fibrillation; Z79.01 Long term (current) use of anticoagulants; J44.9 Chronic obstructive pulmonary disease, unspecified; E78.5 Hyperlipidemia, unspecified; I10 Essential (primary) hypertension; R91.1 Solitary pulmonary nodule; Z86.73 Personal history of transient ischemic attack (TIA), and cerebral infarction without residual deficits; F10.10 Alcohol abuse, uncomplicated; F17.200 Nicotine dependence, unspecified, uncomplicated